=== PATIENT | female | born 1945 | race Caucasian/White ===

== ENCOUNTER 2018-03-17 10:26 | Inpatient (IN) | payer OTHER ==
[~2018-03-17] VITALS: Ht 160 cm; Wt 53.5 kg
--- NOTE | ~2018-03-17 | EKG ---
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
--- NOTE | ~2018-03-17 | HC ---
[facility] [place] [address] CONSULTATION Name: MARIAM LASSITER Room #: 203-P [facility] IN M.R.#: [id number] Admission: 03/17/18 Attend Phys: Willam Lopez MD Discharge: Date of : 49 Report #: [id number] THIS REPORT FOR: //name// CC: DANO Andres REASON FOR CONSULTATION: Dizziness. HISTORY OF PRESENT ILLNESS: The patient is a 72-year-old woman with a history of acute myocardial infarction treated with medicated stenting of the marginal branch in 2013. She has a history of hypertension and dyslipidemia. Today, she while lying in bed flat developed an intense dizziness and room spinning sensation. She has had up on the side of the bed and thought she was going to fall over. She walked to the kitchen and sat down in the kitchen chair where this symptom persisted. She called her grandchildren who took her to the emergency department. She has had a similar episode of this many years ago, which resolved spontaneously and was labeled as vertigo. She has had a recent upper respiratory tract infection. She denies fevers or chills. She does have a known sinus bradycardia with heart rates consistently seen in our office in the 40s to low 50 range and that is no different from her presentation in emergency room visit today. Blood pressure readings have been well controlled. There have been no orthostatic changes. She denies chest pain, pressure or ischemic type symptoms. She had a recent nonischemic stress study; normal ejection fraction without evidence of prior infarct. ALLERGIES: There are no known drug allergies. MEDICATIONS: Include aspirin 81 mg daily, atenolol 50 mg daily, levothyroxine 100 mcg daily, losartan 100 mg daily, and pravastatin 40 mg daily. PAST MEDICAL HISTORY: Medical records have been reviewed and include history of Helicobacter pylori treated, coronary artery disease, hypertension, and hypothyroidism. SOCIAL HISTORY: She is a former smoker, lives independently. FAMILY HISTORY: Unremarkable for premature coronary disease. REVIEW OF SYSTEMS: All systems negative except as that noted above. PHYSICAL EXAMINATION: GENERAL: A pleasant woman in no distress. VITAL SIGNS: Blood pressure is 143/73, heart rate of 50 and regular. She is afebrile, 5 feet 3 inches tall, 118 pounds. HEENT: There are neither xanthelasma, subcutaneous xanthomata, oral mucosal or digital cyanosis or kyphoscoliosis present. [facility] [address] [place] [address] CONSULTATION Name: MARIAM LASSITER Room #: 203-P [facility] IN .R.#: [id number] Admission: 03/17/18 Attend Phys: Willam Lopez MD Discharge: Date of : 49 Report #: [id number] CHEST: Clear to auscultation and percussion. CARDIAC: Regular rate and rhythm with normal S1, S2. No murmurs, gallops or rubs. ABDOMEN: Soft and nontender. EXTREMITIES: Without cyanosis, clubbing or edema. Radial pulses are 2+. NEUROLOGIC: She is alert with a nonfocal exam. LABORATORY DATA: Sodium 139, potassium 4.6, creatinine 0.7. Troponin 0.08. Tox screen was negative. Magnesium 1.7, creatinine 0.66, sodium 144, potassium 4.5, glucose 91. White count 4.8, hemoglobin 12, hematocrit 37, platelet count 169. IMAGING DATA: Chest x-ray: Atelectasis, right costophrenic margin, normal heart size and vascularity. IMPRESSION: 1. Vertigo. 2. Sinus bradycardia, asymptomatic. 3. Hypertension. 4. Dyslipidemia. 5. Coronary artery disease with remote marginal branch stenting in 2014; recent nonischemic stress study; normal ejection fraction. RECOMMENDATIONS: 1. Antivert for vertigo. 2. Neurologic consultation. No further cardiovascular testing is needed at this point. 3. No specific treatment for asymptomatic bradycardia is needed. There was no evidence of high grade heart block and her heart rates are in line and consistent with what have been seen for several years on an outpatient basis. <ELECTRONICALLY SIGNED> By: Mayank Vera MD, [facility] 03/18/18 0846 [id number] Mayank Vera MD, [facility] /nt
--- NOTE | ~2018-03-17 | EKG ---
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 : 1945 Requested By: Mayank Vera Order Number: [id number] MD: Mayank Vera Measurements Intervals [place] Rate: 50 P: 58 [place]: 148 QRS: 62 QRSD: 93 T: 54 QT: 451 QTc: 412 Interpretive Statements Sinus rhythm Baseline wander in lead(s) V3 Compared to ECG 08/11/2013 08:10:57 Inferior and lateral T wave abnormality is no longer present Electronically Signed On 03-18-2018 8:08:22 RACING MECHANIC by Mayank Vera [email or web address] <ELECTRONICALLY SIGNED> By: Mayank Vera MD, [facility] 03/18/18 0808 1410 141 Mayank Vera MD, [facility] /EPI
[~2018-03-17 10:26] MED LIST: ASPIR 8181 MG PO; ATENOLOL 50MG T50 M1 PO; ATENOLOL 50MG T50 MG; EFFIENT10 MG; LISINOPRIL2.5 MG; LOVASTAT20 PO; SYNTHROID100 MC1 PO; VENTOLIN HFA INH8 GM INH
[2018-03-17 12:55] VITALS: BP 143/73
[2018-03-17 13:21] VITALS: BP 143/73
[2018-03-17] MEDS ORDERED: LOSARTAN PO (13:29)
[2018-03-17] MEDS ORDERED: ATORVASTATIN CA40 MG PO (13:30)
[2018-03-17] MEDS ORDERED: ACTIGALL300 MG (13:31)
[2018-03-17 15:19] LABS: HEMATOCRIT 37.4 % (37.0-47.0); HEMOGLOBIN 12.5 gm/dL (12.0-15.0); MCH 31.2 pg (26.0-34.0); MCHC 33.4 g/dL (28.0-37.0); MCV 93.6 fL (80.0-100.0); RDW 13.8 % (10.5-14.5); WBC 5.4 thou/uL (4.0-11.0)
[2018-03-17 15:30] LABS: CREATININE 0.7 mg/dL (0.6-1.0); POTASSIUM 4.6 mmol/L (3.5-5.1)
[2018-03-17 15:36] LABS: ALBUMIN 3.3 g/dL (3.4-5.0); TOTAL BILIRUBIN 0.6 mg/dL (<0.1-1.0); TOTAL PROTEIN 7.8 g/dL (6.4-8.2)
[2018-03-17 16:05] VITALS: BP 149/68
[2018-03-17 16:08] VITALS: BP 135/67
[2018-03-17 16:10] VITALS: BP 134/84
[2018-03-17 19:51] VITALS: BP 121/66
[2018-03-18 00:08] VITALS: BP 105/56
[2018-03-18 03:33] VITALS: BP 98/55
[2018-03-18 07:20] VITALS: BP 1014/65
[2018-03-18 11:25] VITALS: BP 112/61
[2018-03-18] MEDS ORDERED: ATENOLOL 25MG T25 MG PO (13:05)
[2018-03-18] MEDS ORDERED: COZAAR100 MG PO (13:05)
[2018-03-18] MEDS ORDERED: ANTIVERT25 MG PO (13:11)
[2018-03-18 14:09] VITALS: BP 112/61
== END 2018-03-18 14:42 | disposition home or self-care (01) | DRG 149 ==
LOC: 2N 10:26
PROVIDERS: Hospitalist
DX: R42 Dizziness and giddiness (principal); I10 Essential (primary) hypertension; E78.5 Hyperlipidemia, unspecified; I25.10 Atherosclerotic heart disease of native coronary artery without angina pectoris; E03.9 Hypothyroidism, unspecified; K21.9 Gastro-esophageal reflux disease without esophagitis; J44.9 Chronic obstructive pulmonary disease, unspecified; E78.00 Pure hypercholesterolemia, unspecified; Z60.2 Problems related to living alone; M62.84 Sarcopenia; K59.00 Constipation, unspecified; I25.2 Old myocardial infarction; Z87.891 Personal history of nicotine dependence; Z82.49 Family history of ischemic heart disease and other diseases of the circulatory system; Z79.82 Long term (current) use of aspirin; Z79.899 Other long term (current) drug therapy
CPT/HCPCS: 10081

== ENCOUNTER 2019-05-09 11:51 | Emergency (ER) | payer OTHER ==
[~2019-05-09] VITALS: Ht 157.5 cm; Wt 54.4 kg
[~2019-05-09 11:51] MED LIST changes: +ACTIGALL300 MG; +ANTIVERT25 MG PO; +ATENOLOL 25MG T25 MG PO; +ATORVASTATIN CA40 MG PO; +COZAAR100 MG PO; +LOSARTAN PO
[2019-05-09] MEDS ORDERED: NORCO 5-325 TA1 EAC1 PO (12:47)
[2019-05-09 13:23] VITALS: BP 122/58
== END 2019-05-09 13:23 | disposition home or self-care (01) ==
LOC: ER 11:51
DX: K13.70 Unspecified lesions of oral mucosa (principal); I10 Essential (primary) hypertension; E78.00 Pure hypercholesterolemia, unspecified; E03.9 Hypothyroidism, unspecified; K21.9 Gastro-esophageal reflux disease without esophagitis; J44.9 Chronic obstructive pulmonary disease, unspecified; Z95.5 Presence of coronary angioplasty implant and graft; Z87.891 Personal history of nicotine dependence

== ENCOUNTER → 2019-12-29 | Outpatient (CLI) | payer OTHER ==
[~2019-12-29] MED LIST changes: +NORCO 5-325 TA1 EAC1 PO
== END ==
LOC: SJCVC 13:30
PROVIDERS: ATTEND Internal Medicine
DX: I25.10 Atherosclerotic heart disease of native coronary artery without angina pectoris (principal); E78.2 Mixed hyperlipidemia; I10 Essential (primary) hypertension; I65.23 Occlusion and stenosis of bilateral carotid arteries; C06.2 Malignant neoplasm of retromolar area; Z79.899 Other long term (current) drug therapy; Z87.891 Personal history of nicotine dependence

== ENCOUNTER → 2020-07-05 | Outpatient (CLI) | payer OTHER | LOC: SJCVC 10:54 | PROVIDERS: ATTEND Internal Medicine | DX: I25.10 Atherosclerotic heart disease of native coronary artery without angina pectoris (principal); I10 Essential (primary) hypertension; E78.2 Mixed hyperlipidemia; I65.23 Occlusion and stenosis of bilateral carotid arteries; C06.2 Malignant neoplasm of retromolar area; I25.2 Old myocardial infarction; Z85.43 Personal history of malignant neoplasm of ovary; Z79.82 Long term (current) use of aspirin; Z79.899 Other long term (current) drug therapy; Z87.891 Personal history of nicotine dependence ==

== ENCOUNTER → 2021-01-31 | Outpatient (CLI) | payer OTHER | LOC: SJCVCIMAG 08:58 | PROVIDERS: ATTEND Internal Medicine | DX: I65.23 Occlusion and stenosis of bilateral carotid arteries (principal); I49.8 Other specified cardiac arrhythmias; I37.1 Nonrheumatic pulmonary valve insufficiency; I25.10 Atherosclerotic heart disease of native coronary artery without angina pectoris; E78.5 Hyperlipidemia, unspecified; I10 Essential (primary) hypertension; C06.2 Malignant neoplasm of retromolar area; Z79.82 Long term (current) use of aspirin; Z79.899 Other long term (current) drug therapy; Z87.891 Personal history of nicotine dependence; R00.0 Tachycardia, unspecified ==